=== PATIENT | female | born 1975 | race Caucasian/White ===

== ENCOUNTER 2019-10-08 19:02 | Emergency (ER) | payer OTHER, SELFPAY ==
[2019-10-08 19:12] VITALS: BP 119/74; PULSE 71; RESP 15; TEMP 36.6; O2SAT 100; BMI 28.0
[2019-10-08 19:34] LABS: Bilirubin Urine UA NEGATIVE (NEGATIVE); Color Urine UA RED; Glucose Urine UA NEGATIVE (Negative); Ketones Urine UA TRACE (NEGATIVE); Leukocyte Esterase Urine UA 1+ (NEGATIVE); Nitrite Urine UA POSITIVE (Negative); Occult Blood Urine UA 3+ (Negative); Protein Urine UA 2+ (Negative); Specific Gravity Urine UA 1.025 (1.000-1.035); Urobilinogen Urine UA 0.2 E.U./dL (0.2)
[2019-10-08 19:35] LABS: Appearance Urine UA CLOUDY
--- NOTE | 2019-10-08 19:38 | ED_ITS ---
HPI - Female Genitourinary <Alejandra Craft PA-C - Last Filed: 10/09/19 00:01> General Chief complaint: Urogenital-Female Stated complaint: PAIN WHILE URINATE FREQUENTLY Time Seen by Provider: 10/08/19 19:32 Source: patient Mode of arrival: Family Vehicle Limitations: no limitations History of Present Illness HPI Narrative: This is a previously healthy 44-year-old woman with a distant hi story of UTI who presents to the emergency department complaining of urgency, frequency and burning with urination that began this morning. She says she went for a bike ride this morning after this began and it was just unbearable because she needed to keep stopping but there was really no where to pee. She later noticed that she thought she saw some blood in her urine and presents to the emergency department today for evaluation for possible UTI. She is currently in the area on a camping trip. She says there is no chance she could be and says she thinks she has had a total of 3 UTIs in her entire life. She denies abdominal pain, vaginal pain, pelvic pain, any systemic symptoms including fever, nausea, vomiting, diarrhea, chills, body aches. MD Complaint: dysuria and UTI Location: suprapubic Female Urogenital Radiation: Non-Radiating Severity: mild Severity scale (1-10): 3 Quality: Burning and Dull Duration: constant Relieving factors: urination Exacerbating factors: none Urinary symptoms: Dysuria, Frequency, Hematuria and Urgency Sexual activity: No Patient : No (Patient states she cannot be ) Associated symptoms: denies other symptoms Related Data Previous Rx's Medication Instructions Recorded nitrofurantoin macrocrystal 100 mg PO BID #10 cap 10/08/19 Allergies Allergy/AdvReac Type Severity Reaction Status Date / Time Penicillins Allergy Hives Verified 10/08/19 19:17 Review of Systems <Alejandra Craft PA-C - Last Filed: 10/09/19 00:01> Review of Systems Narrative: GENERAL: Denies chills, fatigue, malaise, fever, sweats. HEENT: Denies sinus pain, ear pain, sore throat, difficulty swallowing, dizziness. RESPIRATORY: Denies dyspnea, cough, wheezing, hemoptysis, sputum. CARDIOVASCULAR: Denies chest pain, palpitations, orthopnea, edema, GASTROINTESTINAL: Denies nausea, vomiting, abdominal pain, diarrhea, constipation, melena. : Positive for dysuria, frequency, negative for incontinence, positive for hematuria, negative for urinary retention. MUSCULOSKELETAL: denies weakness, joint pain, or bony pain SKIN: Denies rash, skin lesions, or other NEUROLOGIC: Denies weakness, headache, numbness, change in speech, confusion, seizures, incoordination. PSYCHIATRIC: No concerning psychosocial issues. 12 point review of systems is negative except for those stated above Patient History <Alejanrda Craft PA-C - Last Filed: 10/09/19 00:01> alcohol intake frequency: a few times a week Substance Use Type: does not use Exam <Alejandra Craft PA-C - Last Filed: 10/09/19 00:01> Narrative Exam Narrative: GENERAL: 44 year old patient appears stated age. Well-nourished, well-developed patient, in mild distress. HEAD: Atraumatic. Normocephalic. EYES: Pupils equal round and reactive. Extraocular motions intact. No scleral icterus. No injection or drainage. ENT: Nose without bleeding, purulent drainage. Airway patent. NECK: Trachea midline. Non tender CARDIOVASCULAR: Regular rate and rhythm without murmurs, gallops, or rubs. RESPIRATORY: Clear to auscultation. Breath sounds equal bilaterally. No wheezes, rales, or rhonchi. GASTROINTESTINAL: Abdomen soft, she is tender suprapubically, otherwise non- tender, nondistended. EXTREMITIES: No edema or joint tenderness. BACK: Nontender without deformity or crepitance. No CVA/flank tenderness. NEURO: AOx3. SKIN: No rash or erythema of visible areas Initial Vital Signs Initial Vital Signs: Vital Signs Temperature 97.9 F 10/08/19 19:12 Pulse Rate 71 10/08/19 19:12 Respiratory Rate 15 10/08/19 19:12 Blood Pressure 119/74 10/08/19 19:12 Pulse Oximetry 100 10/08/19 19:12 <Vipin Gonsalez DO - Last Filed: 10/09/19 00:03> Initial Vital Signs Initial Vital Signs: Vital Signs Temperature 97.9 F 10/08/19 19:12 Pulse Rate 71 10/08/19 19:12 Respiratory Rate 15 10/08/19 19:12 Blood Pressure 119/74 10/08/19 19:12 Pulse Oximetry 100 10/08/19 19:12 Scores <Alejandra Craft PA-C - Last Filed: 10/09/19 00:01> GCS Hardesty coma scale eye opening: Spontaneous Brayan coma scale verbal response: Orientated Hardesty coma scale motor response: Obey commands Brayan coma scale total score: 15 Course <ABRIL Ramirez Last Filed: 10/09/19 00:01> Orders Ordered: ED Orders 10/08/19 19:00 Urinalysis and Microscopic Stat Urine Culture Stat Vital Signs Vital signs: Vital Signs - 8 hr 10/08/19 19:12 10/08/19 20:28 Temperature 97.9 F Pulse Rate 71 66 Respiratory Rate 15 12 Blood Pressure 119/74 126/93 H Pulse Oximetry 100 100 <Vipin Gonsalez DO - Last Filed: 10/09/19 00:03> Orders Ordered: ED Orders 10/08/19 19:00 Urinalysis and Microscopic Stat Urine Culture Stat Vital Signs Vital signs: Vital Signs - 8 hr 10/08/19 19:12 10/08/19 20:28 Temperature 97.9 F Pulse Rate 71 66 Respiratory Rate 15 12 Blood Pressure 119/74 126/93 H Pulse Oximetry 100 100 MDM - Female Genitourinary <Alejandra Craft PA-C - Last Filed: 10/09/19 00:01> Differential Diagnosis Differential diagnosis: Likely urinary tract infection, vaginitis, cystitis and other (Pyelonephritis, ureterolithiasis) Medical Records Attestation: I reviewed the patient's medical records. Lab Data Attestation: I reviewed the patient's lab results. Labs: Lab Results 10/08/19 Range/Units 19:00 Urine Color Red Urine Appearance Cloudy Urine pH 5.0 (4.5-8.0) Ur Specific [place] 1.025 (1.000-1.035) Urine Protein 2+ H (Negative) Urine Glucose (UA) Negative (Negative) g/dL Urine Ketones Trace H (NEGATIVE) Urine Occult Blood 3+ H (Negative) Urine Nitrate Positive H (Negative) Urine Bilirubin Negative (NEGATIVE) Urine Urobilinogen 0.2 (0.2) E.U./dL Ur Leukocyte Esterase 1+ H (NEGATIVE) Urine RBC >100/hpf H (0-5/HPF) Urine WBC 10-30/hpf H (0-5/HPF) Ur Squamous Epith Cells 1-5 /hpf (0-5/HPF) Amorphous Sediment 1+ Urine Bacteria Moderate (10-30) H (None) Urine Mucus 1+ H (Negative) Ur Culture Indicated? Specimen cultured MDM Narrative Medical decision making narrative: This is a 44-year-old previously healthy woman who presents to the emergency department with symptoms of dysuria, urgency and frequency that began this morning, [facility] Differential diagnoses considered include urinary tract infection, ureterolithiasis, cystitis, pyelonephritis, STI I have low suspicion for a pyelonephritis given exam and negative CVA tenderness, negative systemic symptoms, patient does not endorse any concern for STI, symptoms are not consistent with ureterolithiasis. Urine is positive for a UTI, with nitrate positive and blood positive. Treating with nitrofurantoin, prescription E-prescribed to [facility] in [place] at request of patient so that she can pick it up tonight prior to closure. Patient was provided with emergency return precautions, all questions were answered. <Vipin Gonsalez, DO - Last Filed: 10/09/19 00:03> Lab Data Labs: Lab Results 10/08/19 Range/Units 19:00 Urine Color Red Urine Appearance Cloudy Urine pH 5.0 (4.5-8.0) Ur Specific [place] 1.025 (1.000-1.035) Urine Protein 2+ H (Negative) Urine Glucose (UA) Negative (Negative) g/dL Urine Ketones Trace H (NEGATIVE) Urine Occult Blood 3+ H (Negative) Urine Nitrate Positive H (Negative) Urine Bilirubin Negative (NEGATIVE) Urine Urobilinogen 0.2 (0.2) E.U./dL Ur Leukocyte Esterase 1+ H (NEGATIVE) Urine RBC >100/hpf H (0-5/HPF) Urine WBC 10-30/hpf H (0-5/HPF) Ur Squamous Epith Cells 1-5 /hpf (0-5/HPF) Amorphous Sediment 1+ Urine Bacteria Moderate (10-30) H (None) Urine Mucus 1+ H (Negative) Ur Culture Indicated? Specimen cultured Discharge Plan Departure Patient Disposition: Home Clinical Impression: Urinary tract infection Qualifiers: Urinary tract infection type: acute cystitis Hematuria presence: with hematuria Qualified Code(s): N30.01 - Acute cystitis with hematuria Discharge Date/Time: 10/08/19 20:29 Instructions: DI for Urinary Tract Infection (UTI) Activity Restrictions/Additional Instructions: Thank you for letting us to be part of your care in the emergency department today. There is no evidence of an emergent or life threatening illness at this time, but follow up with your doctor in 1-2 days is recommended nonetheless to continue to rule out serious underlying causes of your symptoms. Please call the office for an appointment. Please return to the Emergency Department for any worsening or persistent symptoms. Please take medications as directed. You have evidence of a urinary tract infection today, and I have prescribed antibiotics for you called nitrofurantoin you should take this twice a day once every 12 hours for 5 days i.e. prescribed this and sent it to the [facility] in [place] you should be able to pick it up today. If you have new or worsening symptoms please do not hesitate to seek medical care. You can follow-up with your primary care physician in the next week. Prescriptions: New nitrofurantoin macrocrystal 100 mg capsule 100 mg PO BID Qty: 10 RF: 0 <Vipin Gonsalez, DO - Last Filed: 10/09/19 00:03> Cosign ED Attending Cosignature Attestation: Dr Gonsalez Co-Sign Statement: I was available for consultation during this patient's emergency department visit. This chart is signed by myself for administrative purposes only. I did not have direct contact with this patient during this visit. They were seen independently by the APC.
[2019-10-08 19:42] LABS: RBC Urine >100/HPF (0-5/HPF)
[2019-10-08 19:43] LABS: Amorphous Sediment Urine 1+; Bacteria Urine Moderate (10-30); Culture Indicated Urine Specimen Cultured; Mucus Urine 1+ (Negative); Squamous Epithelial Cell Urine 1-5 /HPF (0-5/HPF); WBC Urine 10-30/HPF (0-5/HPF)
[2019-10-08 20:28] VITALS: BP 126/93; PULSE 66; RESP 12; O2SAT 100
== END 2019-10-08 20:29 | disposition home or self-care (01) ==
PROVIDERS: Emergency Medicine; Emergency Provider Student in an Organized Health Care Education/Training Program
DX: N30.01 Acute cystitis with hematuria (principal)
CPT/HCPCS: 81001; 87077; 87086; 87186; 99281; 99282